=== PATIENT | female | born 2005 | race Caucasian/White ===

== ENCOUNTER 2025-09-01 05:34 | Inpatient (IN) ==
[2025-09-01] MEDS ORDERED: OXYTOCIN 30 UNITS/NSS 30 UNITS/500 ML BAG IV PRN ×2 (06:26→22:17)
[2025-09-01 06:54] LABS: Hematocrit (blood only) 30.2 % (37.0-47.0); Hemoglobin 9.8 g/dL (12.0-16.0); Mean Corpuscular Hemoglobin 27.2 pg (25.0-34.0); Mean Corpuscular Volume 83.9 fL (80.0-100.0); Platelet Count 353 K/uL (130-400); RDW Standard Deviation 41.1 fL (36.4-46.3); Red Blood Count 3.60 M/uL (4.20-5.40); White Blood Count 13.75 K/ul (4.8-10.8)
[2025-09-01] MEDS: LACTATED RINGER'S 1,000 ML IV PRN (06:59)
[2025-09-01] MEDS: PENICILLIN GK 6 MU in DEXTROSE 5% 250 ML IV STA (07:03)
--- NOTE | 2025-09-01 07:56 | History & Physical Report ---
Date of Service September 01, 2025 Assessment & Plan (1) contractions: Plan: Spontaneous rupture of the membranes early labor GBS positive antibiotics started at admission Admission and Anticipated Discharge Date Admission Date: September 01, 2025 History of Present Illness Primary Care Provider: NO PCP [facility] [address] [place] [address] Obstetrics Visit Signed Patient: JANA BULLOCK Service Date: 08/31/25 MR#: [id number] Ref Phy: Omkar Ordaz Acct ID:[id number] Nikki Phy: PCP,NO Date: 2005 Location: [facility] cc: Omkar Ordaz CRNP~ *NOTICE TO RECEIVING CONSTITUTION PARTY/AGENCY This information is strictly Confidential and protected under [place] law. [place] law prohibits you from making any further disclosure of this information unless further disclosure is expressly permitted by the written consent of the person to whom it pertains or is authorized by law. A general authorization for the release of medical or other information is not sufficient for this purpose. Physician Practice accepts no responsibility if the information is made available to any other person, INCLUDING THE PATIENT. Medical Community Mental Health Social Worker Community Mental Health Social Worker Determination Visit Includes a Sensitive Exam of the Pt/Pt Requested: Yes Pt Informed of [facility]'s Recommendation for a Medical Community Mental Health Social Worker: Yes Presence of a Medical Community Mental Health Social Worker: Accepts Visit MANUELA Calculator Estimated Delivery Date Method Current Current Estimate 09/01/25 LMP (Certain) 39w 6d LMP: 11/25/24 : 1 Full term: 0 Premature: 0 Total Number of Induced Abortions: 0 Total Number of Spontaneous Abortions: 0 Ectopics: 0 Multiple births: 0 Number of Living Children: 0 and Delivery Plans 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 *Genetic Consult 03/22/25 *Declines amnio *Declines anatomy with MFM *Offered MFM consult; will f/u if desires GBS + will need treatment in labor Allergies Allergy/AdvReac Type Severity Reaction Status Date / Time codeine AdvReac Nausea Verified 08/31/25 09:35 Home Medications Medication Instructions Recorded Confirmed Type prenat.vits,huan,[id number] tab PO 01/19/25 08/31/25 History Patient History Surgical History S/P tonsillectomy and adenoidectomy Family History Other Cancer Social History Smoking Status: Current every day smoker Tobacco Type: E-cigarettes / Vaping Cigarettes Per Day: daily; Do You Dip or Chew Tobacco: No; Tobacco Cessation Education Requested by Patient: No Hx Alcohol Use: No Hx Substance Use: No Preferred Language: Kyrgyz Communication Ability: Effective Vest Presser Required: No Beliefs That Will Affect Care: None marital status: Single marital status details: Devorah (21) [phone] Current Living Situation: Significant Other Current Living Situation Comment: lives with fob, 2 cats, 1 dog, fob to change litter current occupational status: unemployed Feels Safe at Home: Yes Safety Concerns: Feels Safe At This Time Assistive Devices: None Physical Exam Constitutional: WD/WN, vitals as above well developed and well nourished Respiratory: normal respiratory effort, lungs clear to auscultation normal respiratory effort Cardiovascular: RRR, no murmur, no edema Gastrointestinal (Abdomen): normal bowel sounds, soft, nontender, no hepatosplenomegaly Results & Data Vital Signs (Past 12 Hours) Vital Signs Temp Pulse Resp BP 09/01/25 07:05 98.1 F 83 18 112/68 09/01/25 06:02 97 H 118/82 09/01/25 05:57 98.4 F 18 Coding Level of Care Code None Diagnoses contractions O47.00
--- NOTE | 2025-09-01 10:27 | Labor Progress Brief Note ---
Date of Service September 01, 2025 Subjective Feeling ctx, Q5 min Wants to get up and ambulate. FHT Cat 1 [place] Q 5 /-2 She desires ambulation, not ready for epidural yet. Assessment & Plan Admission and Anticipated Discharge Date Admission Date: September 01, 2025 Results & Data Vital Signs (Past 12 Hours) Vital Signs Temp Pulse Resp BP 09/01/25 09:51 37.2 C 92 H 20 109/70 09/01/25 08:29 103 H 125/63 09/01/25 07:05 36.7 C 83 18 112/68 09/01/25 06:02 97 H 118/82 09/01/25 05:57 36.9 C 18 Coding Level of Care Code None
[2025-09-01] MEDS: PENICILLIN GK 3 MU in DEXTROSE 5% 100 ML IV PRN (10:57)
--- NOTE | 2025-09-01 11:26 | Anesthesiology Consultation ---
Date of Service September 01, 2025 Assessment & Plan Chart Review Chart Review: Acceptable Risk for Surgery, Patient NOT seen in Pre Admission Testing and Acceptable Risk for Labor Epidural Consults Requested none ASA ASA2 Proposed Anesthesia Anesthesia Type: Labor Epidural and CSE History Height/Weight Height: 5 ft 1 in Weight: 64.949 kg Allergies Allergy/AdvReac Type Severity Reaction Status Date / Time codeine AdvReac Nausea Verified 08/31/25 09:35 Medications Home Medications Medication Instructions Recorded Confirmed Last Taken prenat.vits,huan,[id number]-[id number] tab PO 01/19/25 08/31/25 08/31/25 08:00 Active Medications Generic Name Dose Route Start Last Admin Trade Name Freq PRN Reason Stop Dose Admin Lactated Ringer's 1,000 mls @ 125 mls/hr 09/01/25 06:26 09/01/25 11:00 Lr IV 09/03/25 06:25 999 mls/hr .Q8H PRN Infusion L&D Protocol Protocol Penicillin G Potassium 3 mu/ 106 mls @ 100 mls/hr 09/01/25 09:26 09/01/25 10:57 Dextrose IV 09/11/25 09:25 100 mls/hr Q4H PRN Administration GBS(+) Until Delivery Past Medical History Gerd Anemia + daily tobacco smoker Exercise / Class Metabolic Activity II 4-5 Yardwork/Stairs/Walk up hill Past Family History Family History Other Cancer Past Surgical History Surgical History S/P tonsillectomy and adenoidectomy Past Anesthesia History No Hx of Anesthesia Complications and No Family Hx of Anesthesia Complications History of PONV No Hx of PONV and No Hx of Motion Sickness Social History Smoking Status: Current every day smoker Smoking cigarettes per day: daily Do You Dip or Chew Tobacco: No Hx Alcohol Use: No Hx Substance Use: No substance use type: does not use Physical Exam Vital Signs Last Vital Signs Temp 37.2 C 09/01/25 09:51 Pulse 92 H 09/01/25 09:51 Resp 20 09/01/25 09:51 BP 109/70 09/01/25 09:51 Testing Laboratory Results 09/01/25 06:31
[2025-09-01] MEDS ORDERED: PROMETHAZINE 6.25 MG/50.25 ML BAG IV PRN (12:05)
[2025-09-01] MEDS ORDERED: NALBUPHINE HCL INJ 10 MG/ML AMP IV PRN (12:05)
[2025-09-01] MEDS ORDERED: ONDANSETRON INJ 2 MG/ML 2 ML VIAL IV PRN (12:05)
[2025-09-01] MEDS ORDERED: BUPIVACAINE 0.25% PF 30 ML VIAL EPI PRN (12:05)
[2025-09-01] MEDS ORDERED: ROPIVACAINE 0.5% PF 5 MG/ML 20 ML VIAL EPI PRN (12:05)
[2025-09-01] MEDS ORDERED: LIDOCAINE 2% MPF LOCAL 5 ML VIAL EPI PRN (12:05)
[2025-09-01] MEDS ORDERED: NALOXONE HCL 1 MG in SODIUM CHLORIDE 0.9% 1,000 ML IV PRN (12:05)
[2025-09-01] MEDS ORDERED: NALOXONE HCL 0.4 MG/1 ML VIAL/CARP IV PRN (12:05)
[2025-09-01] MEDS ORDERED: SODIUM CHLORIDE 0.9% PF INJ 10 ML VIAL EPI PRN (12:05)
[2025-09-01] MEDS ORDERED: diphenhydrAMINE 50 MG/ML VIAL IV PRN (12:05)
[2025-09-01] MEDS: fentANYL 2 MCG/ML BUPIVacaine 0.125%-NSS 100ML BAG ONE (12:07)
[2025-09-01] MEDS: BUPIVACAINE 0.25% PF 30 ML VIAL ONE (12:09)
[2025-09-01] MEDS: LIDOCAINE 2%/EPINEPHRINE 1:200,000 20 ML PF ONE (12:10)
[2025-09-01] MEDS: SODIUM CHLORIDE 0.9% PF INJ 10 ML VIAL ONE (12:11)
[2025-09-01] MEDS: BUPIVACAINE 0.25% PF 30 ML VIAL EPI STA (12:19)
[2025-09-01] MEDS: LIDOCAINE 2%/EPINEPHRINE 1:200,000 20 ML PF EPI STA (12:20)
[2025-09-01] MEDS: SODIUM CHLORIDE 0.9% PF INJ 10 ML VIAL EPI STA (12:20)
--- NOTE | 2025-09-01 15:47 | Labor Progress Brief Note ---
Date of Service September 01, 2025 Subjective Comfortable with epidural. FHT Cat 1 [place] Q 2-3 SVE 2cm per RN Will start pitocin. Assessment & Plan Admission and Anticipated Discharge Date Admission Date: September 01, 2025 Results & Data Vital Signs (Past 12 Hours) Vital Signs Temp Pulse Resp BP Pulse Ox 09/01/25 15:39 107 H 100 09/01/25 15:34 128 H 99 09/01/25 15:30 108 H 118/71 09/01/25 15:29 98 H 99 09/01/25 15:24 110 H 100 09/01/25 15:19 126 H 99 09/01/25 15:15 100 H 113/71 09/01/25 15:14 84 98 09/01/25 15:09 87 99 09/01/25 15:04 138 H 100 09/01/25 14:59 100 09/01/25 14:59 113 H 09/01/25 14:59 102 H 105/65 09/01/25 14:54 98 H 100 09/01/25 14:49 96 H 100 09/01/25 14:45 99 H 103/61 09/01/25 14:44 95 H 100 09/01/25 14:39 106 H 100 09/01/25 14:34 100 H 100 09/01/25 14:30 109 H 104/57 L 09/01/25 14:29 99 H 100 09/01/25 14:24 104 H 100 09/01/25 14:19 98 H 100 09/01/25 14:14 91 H 93/53 L 100 09/01/25 14:09 36.8 C 99 H 18 100 09/01/25 14:04 99 H 100 09/01/25 13:59 90 119/75 100 09/01/25 13:54 108 H 100 09/01/25 13:49 103 H 100 09/01/25 13:45 98 H 125/81 09/01/25 13:44 93 H 100 09/01/25 13:39 107 H 100 09/01/25 13:34 92 H 100 09/01/25 13:29 18 09/01/25 13:29 18 09/01/25 13:29 100 09/01/25 13:29 101 H 09/01/25 13:29 117 H 100/62 09/01/25 13:24 104 H 100 09/01/25 13:19 106 H 100 09/01/25 13:14 100 09/01/25 13:14 101 H 09/01/25 13:14 115 H 105/66 09/01/25 13:09 101 H 100 09/01/25 13:04 77 99 09/01/25 13:00 111 H 101/62 09/01/25 12:59 97 H 100 09/01/25 12:54 90 98 09/01/25 12:49 82 100 09/01/25 12:45 107 H 107/62 09/01/25 12:44 82 100 09/01/25 12:39 95 H 100 09/01/25 12:34 112 H 100 09/01/25 12:29 108 H 100 09/01/25 12:25 36.5 C 95 H 18 106/60 09/01/25 12:24 88 99 09/01/25 12:21 98 H 109/64 09/01/25 12:19 100 H 100 09/01/25 12:16 96 H 101/55 L 09/01/25 12:14 99 H 100 09/01/25 12:10 80 115/63 09/01/25 12:09 98 H 100 09/01/25 12:08 86 108/73 09/01/25 12:06 88 110/77 09/01/25 12:05 64 105/67 09/01/25 12:04 98 H 62/28 L 98 09/01/25 12:02 88 73/36 L 09/01/25 12:00 113 H 18 100/57 L 09/01/25 11:59 115 H 99 09/01/25 11:58 96 H 108/60 09/01/25 11:54 98 H 100 09/01/25 11:49 115 H 100 09/01/25 11:44 100 09/01/25 11:44 107 H 09/01/25 11:44 108 H 124/82 09/01/25 11:39 108 H 100 09/01/25 09:51 37.2 C 92 H 20 109/70 09/01/25 08:29 103 H 125/63 09/01/25 07:05 36.7 C 83 18 112/68 09/01/25 06:02 97 H 118/82 09/01/25 05:57 36.9 C 18 Coding Level of Care Code None
[2025-09-01] MEDS: OXYTOCIN 30 UNITS/NSS 30 UNITS/500 ML BAG IV PRN (15:59)
[2025-09-01] MEDS: fentANYL 2 MCG/ML BUPIVacaine 0.125%-NSS 100ML BAG EPI PRN (21:08)
--- NOTE | 2025-09-01 22:13 | Delivery Summary ---
Vaginal Delivery Summary Date of Service September 01, 2025 Vaginal Delivery Summary and 2nd Degree LAC Vaginal Delivery Summary: Pre-delivery diagnoses: 19yo @ 40 0/7, spontaneous labor, GBS+, atypical Panorama Post-delivery diagnoses: same Procedure: spontaneous vaginal delivery Surgeon: Jenifer Carter DO Complications: none Findings: Viable female . Apgars: 8/9 . Weight pending, please see nursery records Estimated QBL: 173cc Description of delivery: The patient progressed to complete with epidural anesthesia. She then began to push. She spontaneously vaginally delivered a viable from the cephalic presentation. The head delivered in SOLEDAD position. The anterior shoulder delivered, followed by the posterior shoulder, followed by the body. The baby was placed on mother's abdomen and a spontaneous cry was heard. Delayed cord clamping was employed, and the cord was doubly clamped and cut. Cord blood was obtained. The placenta was delivered spontaneously intact with a 3-vessel cord. The uterus and vagina were swept of clots and debris. IV pitocin was given. The uterus became firm. The cervix, vagina, and perineum were inspected. 2nd degree perineal laceration and left labia laceration - repaired with 3-0 Vicryl. 1% lidocaine infused for better pain control during repair. Excellent hemostasis was observed. The mother and baby are recovering in stable and good condition in the room. Sponge, needle and instrument counts were correct x 2. Jenifer Carter DO [facility] Vaginal Delivery Charge Vaginal Delivery Codes: 98677 global code for the antepartum, delivery, and post- Delivery Type Details: and 2nd Degree LAC
[2025-09-01] MEDS: LIDOCAINE 1% LOCAL 20 ML VIAL INFIL PRN (22:16)
[2025-09-01] MEDS ORDERED: HYDROCORTISONE ACETATE 25 MG SUPP PR PRN (22:17)
[2025-09-01] MEDS: BENZOCAINE 20% SPRY 85 APPLN/85 GM CAN EXT PRN (22:43)
[2025-09-01] MEDS: ACETAMINOPHEN 325 MG TAB PO PRN (22:43)
[2025-09-01] MEDS: DIPHTHER/TETAN/PERTUS Vaccine (Tdap, Adol/Adult) 0.5mL IM ONE (22:45)
[2025-09-02] MEDS: IBUPROFEN 600 MG TAB PO PRN (06:38)
[2025-09-02 06:56] LABS: Hematocrit (blood only) 26.0 % (37.0-47.0); Hemoglobin 8.6 g/dL (12.0-16.0)
--- NOTE | 2025-09-02 07:20 | Obstetrical Progress Note ---
Date of Service September 02, 2025 Assessment & Plan (1) Abnormal chromosomal and genetic finding on screening mother: (2) Decreased movement: (3) Normal vaginal delivery: Plan 19 yo post- day 1 s/p Fells well today. Vital signs stable Continue post- care Encourage ambulation and Pain controlled with ibuprofen Hgb stable Discharge home tomorrow, follow up with Dr. Carter in 6 weeks. Admission and Anticipated Discharge Date Admission Date: September 01, 2025 Supervising Physician Co-Signing Physician Notes Resident Physician Supervision Note: I interviewed and examined the patient. Discussed with Dr. Gomez and agree with findings and plan as documented in the note. Any exceptions or clarifications are listed here: PPD1 doing well Documented By: Jenifer Carter, DO Subjective 19 yo post- day 1 s/p Ambulation: ambulating normally Voiding: no voiding problems Passing Gas:: Yes Diet Tolerance:: regular diet Lochia:: Small Feeding Type:: breast feeding Current Pain Level:Slight Resting comfortably this AM in NAD. Denies PERAZA, CP, SOB, N/V/D, LE pain/swelling. Review of Systems Review of Systems: As per HPI. Physical Exam Physical Exam: General: patient resting comfortably, NAD, non-toxic in appearance, AA&O x 4, answers questions appropriately. Skin: warm, dry, intact HEENT: NC/AT, anicteric sclera, conjunctiva without injection, moist mucus membranes. Heart: +S1/S2, regular, no m/r/g Lungs: equal air entry bilaterally, no rales/rhonchi/wheezes Abd: +BS, soft, NT/ND, uterine fundus firm at umbilicus. Ext: warm, no clubbing/cyanosis or edema, Janel's neg. Results & Data Vital Signs (Past 12 Hours) Vital Signs Temp Pulse Pulse Resp BP BP Pulse Ox 09/02/25 03:35 37.0 C 94 H 18 117/77 98 09/02/25 00:45 36.9 C 104 H 18 106/72 99 09/02/25 00:10 36.8 C 18 09/02/25 00:08 131 H 109/74 09/01/25 23:53 133 H 106/68 09/01/25 23:40 18 09/01/25 23:38 112 H 105/66 09/01/25 23:23 157 H 118/66 09/01/25 23:10 36.8 C 18 09/01/25 23:08 129 H 117/65 09/01/25 22:53 116 H 117/64 09/01/25 22:50 18 09/01/25 22:40 18 09/01/25 22:38 117 H 119/81 09/01/25 22:25 18 09/01/25 22:23 115 H 118/77 09/01/25 22:14 115 H 98 09/01/25 22:10 36.8 C 18 09/01/25 22:09 99 09/01/25 22:09 109 H 09/01/25 22:09 106 H 132/76 09/01/25 22:04 108 H 99 09/01/25 21:59 99 09/01/25 21:59 114 H 09/01/25 21:59 114 H 135/82 09/01/25 21:54 124 H 100 09/01/25 21:49 122 H 98 09/01/25 21:44 112 H 129/78 99 09/01/25 21:39 143 H 100 09/01/25 21:38 122 H 91 09/01/25 21:34 107 H 99 09/01/25 21:33 119 H 93 09/01/25 21:30 116 H 134/78 09/01/25 21:29 120 H 100 09/01/25 21:24 109 H 100 09/01/25 21:19 125 H 100 09/01/25 21:15 100 H 147/93 H 09/01/25 21:14 103 H 100 09/01/25 21:09 93 H 100 09/01/25 21:04 109 H 100 09/01/25 21:00 37.1 C 96 H 18 131/67 09/01/25 20:59 96 H 100 09/01/25 20:54 89 100 09/01/25 20:49 85 100 09/01/25 20:44 91 H 122/80 99 09/01/25 20:39 85 99 09/01/25 20:34 88 99 09/01/25 20:30 95 H 130/82 09/01/25 20:29 92 H 100 09/01/25 20:24 81 100 09/01/25 20:19 102 H 100 09/01/25 20:15 91 H 137/87 09/01/25 20:14 89 100 09/01/25 20:09 95 H 100 09/01/25 20:04 91 H 99 09/01/25 20:00 93 H 119/67 09/01/25 19:59 106 H 99 09/01/25 19:54 106 H 99 09/01/25 19:49 85 99 09/01/25 19:44 88 109/65 99 09/01/25 19:39 96 H 99 09/01/25 19:34 93 H 99 09/01/25 19:30 90 125/79 09/01/25 19:29 92 H 97 09/01/25 19:24 99 H 99 09/01/25 19:19 103 H 98 O2 Del Method 09/02/25 03:35 Room Air 09/02/25 00:45 Room Air 09/02/25 00:10 09/02/25 00:08 09/01/25 23:53 09/01/25 23:40 09/01/25 23:38 09/01/25 23:23 09/01/25 23:10 09/01/25 23:08 09/01/25 22:53 09/01/25 22:50 09/01/25 22:40 09/01/25 22:38 09/01/25 22:25 09/01/25 22:23 09/01/25 22:14 09/01/25 22:10 09/01/25 22:09 09/01/25 22:09 09/01/25 22:09 09/01/25 22:04 09/01/25 21:59 09/01/25 21:59 09/01/25 21:59 09/01/25 21:54 09/01/25 21:49 09/01/25 21:44 09/01/25 21:39 09/01/25 21:38 09/01/25 21:34 09/01/25 21:33 09/01/25 21:30 09/01/25 21:29 09/01/25 21:24 09/01/25 21:19 09/01/25 21:15 09/01/25 21:14 09/01/25 21:09 09/01/25 21:04 09/01/25 21:00 09/01/25 20:59 09/01/25 20:54 09/01/25 20:49 09/01/25 20:44 09/01/25 20:39 09/01/25 20:34 09/01/25 20:30 09/01/25 20:29 09/01/25 20:24 09/01/25 20:19 09/01/25 20:15 09/01/25 20:14 09/01/25 20:09 09/01/25 20:04 09/01/25 20:00 09/01/25 19:59 09/01/25 19:54 09/01/25 19:49 09/01/25 19:44 09/01/25 19:39 09/01/25 19:34 09/01/25 19:30 09/01/25 19:29 09/01/25 19:24 09/01/25 19:19 Resident Activity Tracking Resident Involvement: Resident Care Provided Care Provided: Adult Hospital Medicine
[2025-09-02] MEDS: DOCUSATE SODIUM 100 MG CAP PO SCH (08:40)
[2025-09-02] MEDS: PRENATAL VITAMIN 1 TAB PO SCH (08:40)
--- NOTE | 2025-09-02 10:12 | Anesthesia Procedure Note ---
Date of Service September 02, 2025 Anesthesia Post Epidural Note Vital Signs Vital Signs: Temp Pulse Resp BP Pulse Ox O2 Del Method 36.5 C 95 H 16 119/80 98 Room Air 09/02/25 08:45 09/02/25 08:45 09/02/25 08:45 09/02/25 08:45 09/02/25 03:35 09/02/25 08:45 Pain Intensity Lower Back: Pain Intensity: 7 Perineal: Pain Intensity: 6 Abdomen: Pain Intensity: 5 Notes Mental Status: alert / awake / arousable Nausea / Vomiting: adequately controlled Pain: adequately controlled Airway Patency, RR, SpO2: stable & adequate BP & HR: stable & adequate Hydration State: stable & adequate Neuraxial Anesthesia: was administered and sensory block is resolving Anesthetic Complications: no major complications apparent and Pt Satisfied with anesthetic care Epidural: Removed without complications and With tip intact
[2025-09-02 23:31] VITALS: O2SAT 96
--- NOTE | 2025-09-03 06:30 | Obstetrical Progress Note ---
Date of Service September 03, 2025 Assessment & Plan (1) Abnormal chromosomal and genetic finding on screening mother: (2) Decreased movement: (3) Normal vaginal delivery: Plan 19 yo post- day 2 s/p Fells well today. Vital signs stable Continue post- care Encourage ambulation and Pain controlled with ibuprofen Hgb stable Discharge home today, follow up with Dr. Carter in 6 weeks. Admission and Anticipated Discharge Date Admission Date: September 01, 2025 Subjective 19 yo post- day 2 s/p Ambulation: ambulating normally Voiding: no voiding problems Passing Gas:: Yes Diet Tolerance:: regular diet Lochia:: Small Feeding Type:: breast feeding Current Pain Level:Slight Resting comfortably this AM in NAD. Denies PERAZA, CP, SOB, N/V/D, LE pain/swelling. Review of Systems Review of Systems: As per HPI. Physical Exam Physical Exam: General: patient resting comfortably, NAD, non-toxic in appearance, AA&O x 4, answers questions appropriately. Skin: warm, dry, intact HEENT: NC/AT, anicteric sclera, conjunctiva without injection, moist mucus membranes. Heart: +S1/S2, regular, no m/r/g Lungs: equal air entry bilaterally, no rales/rhonchi/wheezes Abd: +BS, soft, NT/ND, uterine fundus firm at umbilicus. Ext: warm, no clubbing/cyanosis or edema, Janel's neg. Results & Data Vital Signs (Past 12 Hours) Vital Signs Temp Pulse Resp BP Pulse Ox O2 Del Method 09/02/25 23:25 37.2 C 92 H 18 108/71 96 Room Air 09/02/25 19:25 36.4 C L 107 H 18 106/72 97 Room Air
--- NOTE | 2025-09-03 08:53 | Obstetrical Progress Note ---
Date of Service September 03, 2025 Assessment & Plan (1) care and examination: Plan 19 yo post- day 1 s/p Fells well today. Vital signs stable Continue post- care Encourage ambulation and Pain controlled with ibuprofen Hgb stable Discharge home today, follow up with Dr. Carter in 6 weeks. Admission and Anticipated Discharge Date Admission Date: September 01, 2025 Supervising Physician Co-Signing Physician Notes Resident Physician Supervision Note: I interviewed and examined the patient. Discussed with Dr. Gomez and agree with findings and plan as documented in the note. Any exceptions or clarifications are listed here: pt doing well. bottle feeding mostly but may try to breastfeed. ready to go home. eating, voiding, ambulating. no pain issues. abd soft ff 2 down nt, ext nt calves. ppd#2 stable for dc home. instruction reviewed. f/u 6 wks pp check. Documented By: Jimena De La Garza MD, FACOG Subjective 19 yo post- day 2 s/p Ambulation: ambulating normally Voiding: no voiding problems Passing Gas:: Yes Diet Tolerance:: regular diet Lochia:: Small Feeding Type:: breast feeding Current Pain Level:Slight Resting comfortably this AM in NAD. Denies PERAZA, CP, SOB, N/V/D, LE pain/swelling. Review of Systems Review of Systems: As per HPI. Physical Exam Physical Exam: General: patient resting comfortably, NAD, non-toxic in appearance, AA&O x 4, answers questions appropriately. Skin: warm, dry, intact HEENT: NC/AT, anicteric sclera, conjunctiva without injection, moist mucus membranes. Heart: +S1/S2, regular, no m/r/g Lungs: equal air entry bilaterally, no rales/rhonchi/wheezes Abd: +BS, soft, NT/ND, uterine fundus firm at umbilicus. Ext: warm, no clubbing/cyanosis or edema, Janel's neg. Results & Data Vital Signs (Past 12 Hours) Vital Signs Temp Pulse Resp BP Pulse Ox O2 Del Method 09/02/25 23:25 37.2 C 92 H 18 108/71 96 Room Air Resident Activity Tracking Resident Involvement: Resident Care Provided Care Provided: Adult [facility] Medicine
[2025-09-03 09:24] VITALS: BP 106/68; PULSE 90; RESP 16; TEMP 98.2
== END 2025-09-03 11:58 | disposition home or self-care (01) | DRG 807 ==
LOC: OPB 05:34 → 4S1 05:35 → 4E2 09-02 00:53